=== PATIENT | female | born 1960 | race Caucasian/White ===

== ENCOUNTER → 2017-02-19 | Outpatient (CLI) | payer OTHER | LOC: BMCIMAGING 08:27 | DX: Z12.31 Encounter for screening mammogram for malignant neoplasm of breast (principal) | CPT/HCPCS: G0202 ==

== ENCOUNTER → 2018-03-11 | Outpatient (CLI) | payer BC | LOC: BMCIMAGING 13:21 | PROVIDERS: ATTEND Internal Medicine | DX: Z12.31 Encounter for screening mammogram for malignant neoplasm of breast (principal) ==

== ENCOUNTER 2018-07-22 13:13 | Inpatient (IN) | payer BC, OTHER ==
--- NOTE | 2018-07-22 13:19 | EDPHY ---
H & P Time Seen by Provider: 07/22/18 13:19 - Medical/Surgical History Hx Asthma: No Hx Chronic Respiratory Disease: No Hx Diabetes: No Hx Cardiac Disease: No Hx Renal Disease: No Hx Cirrhosis: No Hx Alcoholism: No Hx HIV/AIDS: No Hx Splenectomy or Spleen Trauma: No Other PMH: PMH;hypothyroid. PSH:myomectomy, 2x c-sections, - Social History Smoking Status: Never smoked Constitutional: Initial Vital Signs Temperature (C) 36.5 C 07/22/18 13:16 Heart Rate 83 07/22/18 13:16 Respiratory Rate 18 07/22/18 13:16 Blood Pressure 143/103 H 07/22/18 13:16 O2 Sat (%) 100 07/22/18 13:16 O2 Delivery Mode Room Air Allergies/Adverse Reactions: Sulfa (Sulfonamide Antibiotics) Allergy (Verified 07/22/18 13:20) Home Medications: Medication Instructions Recorded Albuterol [Proventil] 1 inh IH QID PRN 10/20/15 Aspirin [Aspirin 81mg (*)] 81 mg PO HS 10/20/15 SIMVASTATIN 10 mg PO HS 10/20/15 Levothyroxine [Synthroid 88 mcg 88 mcg PO DAILY06 #30 tab 10/21/15 (*)] Medical Decision Making - Diagnostics Imaging Results: Imaging Impressions Head CT 07/22/18 13:34 Impression: 1. Large subarachnoid hemorrhage. 2. Mildly dilated lateral ventricles without obstructing mass. Trace intraventricular hemorrhage. Findings discussed with Emergency Department physician, Ash Martin MD, on , 14:20. Head CTA 07/22/18 13:34 Impression: 1. Normal intracranial arterial circulation. No evidence of aneurysm. 2. Patent venous system. Findings were conveyed to Diana, the scribe working with Emergency Department physician, Ash Martin MD, on 07/22/2018, 14:28. Cosigned: Dr. Coy Silva. Neck CTA 07/22/18 13:34 Impression: No dissection or occlusion. Minimal right and mild left carotid stenosis due to plaque. No ulcerative plaque or dissection. Measurement of carotid stenosis is based on the residual internal carotid diameter with [place] Symptomatic Carotid Endarterectomy Trial (NASCET) based stenosis levels. Findings were conveyed to Diana, the scribe working with Emergency Department physician, Ash Martin MD, on 07/22/2018, 14:28. Imaging: Discussed imaging studies w/ hoop cutter Radiologist ED Course/Re-evaluation: CHIEF COMPLAINT: Headache HISTORY OF PRESENT ILLNESS: This patient is a 58 year old female complaining of a sudden severe headache and neck pain which began about one hour prior to arrival. She was driving and had a sudden sensation of stiffness and numbness in her neck. She developed pain almost immediately following which progressed up to her occiput and then to her forehead. She has never had similar headaches in the past. She denies any family history of headaches. She does endorse recent considerable stress due to a family member's hospitalization. Just as I walked into the room to interview the patient, she endorses another sudden, even more intense pain in her head and neck. She denies any recent head trauma. No recent illness. No nausea, vomiting, diarrhea, numbness or weakness in her extremities, chest pain , shortness of breath, fever, or other associated symptoms. REVIEW OF SYSTEMS: A comprehensive 10 system review of systems is otherwise negative aside from elements mentioned in the history of present illness and medical decision making. PHYSICAL EXAM: HR, BP, O2 Sat, RR. Temp noted General Appearance: Alert, well hydrated, appropriate, and non-toxic appearing. Head: Atraumatic without scalp tenderness or obvious injury Eyes: Pupils equal, round, reactive to light and accommodation, EOMI, no trauma , no injection. Ears: Clear bilaterally, no perforation, normal landmarks Nose: Atraumatic, no rhinorrhea, clear. Throat: There is no erythema or exudates, no lesions, normal tonsils, mucus membranes moist. Neck: Supple, 2+ carotid upstroke, nontender, no lymphadenopathy. Respiratory: No retractions, no distress, no wheezes, and no accessory muscle use. Lungs are clear to auscultation bilaterally. Cardiovascular: Regular rate and rhythm, no murmurs, rubs, or gallops. Bilateral carotid, radial, dorsalis pedis, and posterior tibial pulses intact. Good capillary refill all extremities. Gastrointestinal: Abdomen is soft, nontender, non-distended, no masses, no rebound, no guarding, no peritoneal signs. Musculoskeletal: Normal active ROM of all extremities, atraumatic. Neurological: Alert, appropriate, and interactive. The patient has normal DTRs and non-focal cranial nerves, motor, sensory, and cerebellar exam. Skin: No rashes, good turgor, no nodules on palpation. Past medical history: Hypothyroid. Past surgical history: Myomectomy, c-sections x 2 Family history: Noncontributory. Social history: . at bedside. Lives in [place]. Does not abuse tobacco, drugs, or alcohol. DIAGNOSTICS/PROCEDURES/CRITICAL CARE TIME: I spent a total of 40 minutes of critical care time including but not limited to obtaining history, performing a physical exam, ordering interventions and the bedside monitoring of those interventions, collecting and interpreting tests and discussion with consultants but not including time spent performing procedures. DIFFERENTIAL DIAGNOSIS: The differential diagnosis for the patient's headache included but was not limited to subarachnoid hemorrhage, migraine headache, tension headache and infectious causes such as meningitis, pharyngitis and sinusitis. MEDICAL DECISION MAKIN58 y/o female presents following a sudden onset severe neck and headache which began about one hour ago while she was driving. She is neurologically intact on exam. Plan for CT head, CTA head and neck. Plan to administer migraine cocktail for symptom relief. Plan for labs including i-stat. 13:40 Notified by tech of low potassium, 2.6. Plan to administer 20 mEq K+. 14:[address] Stinson, radiologist. CT shows large subarachnoid hemorrhage. 14:[address] Saez, neurosurgeon. Neurosurgery to consult. 14:[address] Stinson, radiologist. No aneurysm noted on CTA. No dissection or occlusion. 14:31 Discussed imaging results with patient. Her is now at bedside. The patient remains neurologically intact, she is mentating appropriately and moving all extremities. 14:40 BP 138/98. We will monitor this. 14:[address] Saez, neurosurgeon. He accepts admission to ICU for subarachnoid hemorrhage. Neurosurgery to consult as above. - Data Points Laboratory Results: 07/22/18 13:38 POC Hgb 15.0 gm/dL gm/dL (12.6-16.3) POC Hct 44 % % (38-47) POC Sodium 141 mEq/L mEq/L (135-145) POC Potassium 2.6 mEq/L L* mEq/L (3.3-5.0) POC Chloride 107 mEq/L mEq/L (97-110) POC BUN 12 mg/dL mg/dL (7-23) POC Creatinine 0.8 mg/dL mg/dL (0.6-1.0) POC Glucose 123 mg/dL H mg/dL (70-100) Medications Given: Potassium Chloride (Potassium Cl 10 Meq (Premix)) 100 mls @ 100 mls/hr IV Q1H DORON Stop: 07/22/18 16:29 Last Admin: 07/22/18 14:27 Dose: 100 mls Discontinued Medications Dexamethasone (Decadron Injection) 10 mg IVP EDNOW ONE Stop: 07/22/18 13:37 Last Admin: 07/22/18 13:43 Dose: 10 mg Ketorolac Tromethamine (Toradol) 30 mg IVP EDNOW ONE Stop: 07/22/18 13:38 Last Admin: 07/22/18 13:43 Dose: 30 mg Metoclopramide HCl (Reglan Injection) 10 mg IVP EDNOW ONE Stop: 07/22/18 13:37 Last Admin: 07/22/18 13:43 Dose: 10 mg Point of Care Test Results: Chemistry 07/22/18 13:38 POC Sodium 141 mEq/L mEq/L (135-145) POC Potassium 2.6 mEq/L L* mEq/L (3.3-5.0) POC Chloride 107 mEq/L mEq/L (97-110) POC BUN 12 mg/dL mg/dL (7-23) POC Creatinine 0.8 mg/dL mg/dL (0.6-1.0) POC Glucose 123 mg/dL H mg/dL (70-100) ISTAT H&H 07/22/18 13:38 POC Hgb 15.0 gm/dL gm/dL (12.6-16.3) POC Hct 44 % % (38-47) Departure - Departure Disposition: [facility] Inpatient Acute Clinical Impression: Subarachnoid hemorrhage Condition: Fair Referrals: Patient,NotPresent [Unknown] - As per Instructions Report Scribed for: Ash Martin Report Scribed by: Stephanie Garcia Date of Report: 07/22/18 Time of Report: 14:36
[2018-07-22] MEDS ORDERED: METOCLOPRAMIDE 10 MG/2 ML VIAL IVP ONE (13:36)
[2018-07-22] MEDS ORDERED: DEXAMETHASONE 10 MG/ML VIAL IVP ONE (13:36)
[2018-07-22] MEDS ORDERED: KETOROLAC 30 MG/1 ML SDV IVP ONE (13:37)
[2018-07-22] MEDS ORDERED: POTASSIUM Cl (KCl) 100 ML IV ONE (13:51)
[2018-07-22] MEDS ORDERED: IOPAMIDOL (ISOVUE 370) 100 ML BTL IV ONE (13:56)
[2018-07-22] MEDS: POTASSIUM Cl (KCl) 100 ML IV SCH ×2 (14:27→15:31)
[2018-07-22] MEDS ORDERED: ONDANSETRON 4 MG/2 ML VIAL ONE (15:58)
[2018-07-22] MEDS ORDERED: niCARdipine/NACL 200 ML IV SCH (16:30)
--- NOTE | 2018-07-22 16:39 | GHP ---
DATE OF ADMISSION: 07/22/2018 Neurosurgical History and Physical CHIEF COMPLAINT: Worst headache of life. 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 During the drive, she developed a sudden severe headache and neck pain that continued in int ensity. She was only 2 minutes from her house and continued home. She went to her neighbor's house and had them call 911. She was transported by ambulance to the emergency department. There, a head CT was obtained which showed a large subarachnoid hemorrhage. She currently complains of a headache and neck pain. This is associated with some nausea. She denies any weakness, paresthesias, or ataxi a. PAST MEDICAL HISTORY: 1. Hyperlipidemia. 2. Hypothyroidism. MEDICATIONS: Prior to admission: 1. Simvastatin. 2. Progesterone. 3. Synthroid. 4. Aspirin. ALLERGIES: Sulfa. FAMILY HISTORY: Her father of a cerebral aneurysm. SOCIAL HISTORY: Patient is and has children. She does not smoke or use drugs. She does dri nk alcohol socially. REVIEW OF SYSTEMS: Patient has no fevers, chills, recent unexplained weight loss, or fatigue. GENERAL PHYSICAL EXAM: Patient is lying in the emergency department in a mild amount of distress. H ead, eyes, ears, nose, and throat are negative to drainage. The extremities are pink, warm, and dry. NEUROLOGICAL EXAM: Patient is awake, alert, oriented x4. Pupils are equal, round, reactive to light . Extraocular motions are intact. There is no evidence of facial droop. Tongue and uvula are midli ne. Spinal accessory muscles are intact. Her motor strength is 5/5 in her arms and legs. Sensation is grossly intact to light touch in her arms and legs. Deep tendon reflexes are 1/4. There is a ne gative Dayna's with no clonus. DIAGNOSTIC STUDIES: A head CT without contrast from 07/22/2018 shows a large amount of subarachnoid blood along the interhemispheric falx, suprasellar space, ambient cisterns, and bilateral anterior Sy lvian fissures. This is suspicious for an aneurysmal subarachnoid hemorrhage. There is no evidence of a subdural hematoma or hydrocephalus. A CTA of the head from 07/22/2018, per the Radiology report, shows a normal intracranial arterial cir culation with no evidence of an aneurysm. There is no evidence of a venous abnormality. A CTA of the neck shows mild bilateral carotid stenosis due to a plaque. There is no evidence of a d issection or occlusion. IMPRESSION: This is a 58-year-old female who has a large spontaneous subarachnoid hemorrhage which i s suspicious for being aneurysmal in nature. She is neurologically intact. PLAN: All the above discussed in detail with patient and her . This patient was seen by Dr. Johnston. At this point in time, her initial CTA is negative for an aneurysm. She will be admitted to the ICU with aggressive blood pressure control. We would like her systolic blood pressure to be kept below 130. She will be started on amlodipine as well as Keppra. She will likely require convention al 4-vessel angiogram sometime in the next day or two to better evaluate for a possible underlying an eurysm. Please call with any neurological changes. /[id number]/MODL
[2018-07-22] MEDS: niMODipine 30 MG CAP PO SCH ×2 (17:02→22:08)
[2018-07-22] MEDS: NS 1,000 ML IV SCH (17:02)
[2018-07-22] MEDS: ACETAMINOPHEN 325 MG TAB PO PRN (17:02)
--- NOTE | 2018-07-22 17:47 | PDMN ---
Medical Necessity Medical necessity: MCG: M79 SAH, non surgical - 4 days: CT shows Large SAH neg for aneurysm, - further monitoring and eval > 2 MN anticipated.
[2018-07-22] MEDS: ASPIRIN EC 81 MG TAB PO SCH (21:02)
[2018-07-22] MEDS: levETIRAcetam 500 MG TAB PO SCH (21:02)
[2018-07-22] MEDS: PROGESTERONE,MICR 100 MG CAP PO SCH (21:02)
[2018-07-22] MEDS: DOXYCYCLINE MONOHYDRATE 40 MG PO SCH (21:02)
[2018-07-22] MEDS: ATORVASTATIN CALCIUM 10 MG TAB PO SCH (21:02)
[2018-07-23] MEDS: niMODipine 30 MG CAP PO SCH ×6 (01:46→21:54)
[2018-07-23] MEDS: ASPIRIN EC 81 MG TAB PO SCH (01:49)
[2018-07-23] MEDS: NS 1,000 ML IV SCH (03:09)
[2018-07-23 05:13] LABS: PLATELET COUNT 163 10^3/uL (150-400)
[2018-07-23] MEDS: LEVOTHYROXINE 100 MCG TAB PO SCH (05:44)
[2018-07-23] MEDS: ACETAMINOPHEN 325 MG TAB PO PRN (08:58)
[2018-07-23] MEDS: levETIRAcetam 500 MG TAB PO SCH ×2 (09:00→21:54)
--- NOTE | 2018-07-23 09:13 | NEUSURGPN ---
Assessment/Plan: A/P:58 yo female with sudden onset of headache, found to have spontaneous SAH. CTA negative for aneurysm - CTA negative, plan on 4 vessel angiogram today with Dr. 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 Johnston Subjective: Patient states she is feeling miserable this morning with headache. No acute changes overnight. No nausea currently, vomiting. Objective: NAD, VSS PERRL, EOMI Speech fluent, following commands Face symmetrical CN II-XII grossly intact BRYANT X4 BUE/BLE 02/28 - Physician Discussed Patient with Dr.: Johnston Neurosurgery Physical Exam - Vitals, I&O, Labs I and O 07/22/18 07/23/18 07/24/18 05:59 05:59 05:59 Intake Total 2816 Balance 2816 Weight 56.699 kg Intake: Oral (ml) 500 IV Intake (ml) 316 IV Infused (ml) 2000 Ns 1,000 ml @ 75 mls/hr 800 IV CONT DORON Rx#: [id number] Other: Number of Voids Toilet 1 Vital Signs Temp Pulse Resp BP Pulse Ox 37.1 C 54 L 16 88/60 L 96 07/23/18 06:00 07/23/18 08:00 07/23/18 08:00 07/23/18 08:00 07/23/18 08:00 Laboratory Results 07/23/18 05:00 07/23/18 05:00 ICD10 Worksheet Patient Problems: Problems Problem Status Onset Subarachnoid hemorrhage Acute Dyspnea Acute
[2018-07-23] MEDS ORDERED: ALTEPLASE 2 MG VIAL IVP PRN (11:12)
[2018-07-23] MEDS ORDERED: HEPARIN 10,000 UNIT/10 ML MDV (1,000 UNIT/ML) IVP PRN (11:12)
[2018-07-23] MEDS ORDERED: MIDAZOLAM 2 MG/2 ML VIAL IVP PRN (11:12)
[2018-07-23] MEDS ORDERED: fentaNYL 100 MCG/2 ML INJ IVP PRN (11:12)
[2018-07-23] MEDS ORDERED: NALOXONE HCL 0.4 MG/ML INJ IVP PRN (11:12)
[2018-07-23] MEDS ORDERED: GLUCAGON HCL 1 MG VIAL IVP PRN (11:12)
[2018-07-23] MEDS ORDERED: PROTAMINE SULFATE 50 MG/5 ML VIAL IVP PRN (11:12)
[2018-07-23] MEDS ORDERED: MEPERIDINE 25 MG/ML SYR IVP PRN (11:12)
[2018-07-23] MEDS ORDERED: FLUMAZENIL 0.5 MG/5 ML MDV IVP PRN (11:12)
[2018-07-23] MEDS ORDERED: NS 1,000 ML IV SCH (11:15)
[2018-07-23] MEDS ORDERED: IOPAMIDOL (ISOVUE-370) 150 ML BTL IV ONE ×2 (11:23→11:51)
--- NOTE | 2018-07-23 11:27 | GCON ---
REASON FOR ADMISSION: Subarachnoid hemorrhage. HISTORY OF PRESENT ILLNESS: Ms Valera is a very pleasant 58-year-old white female with a past [facility] history of hypothyroidism and hyperlipidemia. She apparently was driving home when she developed severe headache and neck pain. She was brought via EMS to the emergency room where a CT scan was pe rformed. This showed a large subarachnoid hemorrhage. She was subsequently admitted to the intensiv e care unit. In discussion with the patient, she states with the exception of her headache and confu tomasa, she is doing well. She denies any chest pain, pleuritic-type chest pain or angina equivalent. There are no fever or night sweats. She has difficulty with short and long-term memory at this poin t. REVIEW OF SYSTEMS: A 10-point review of systems is performed, negative except for what is listed in history of present illness. PAST MEDICAL HISTORY: Significant for hypothyroidism, hyperlipidemia. ALLERGIES: To sulfa. FAMILY HISTORY: Significant for cerebral aneurysm. SOCIAL HISTORY: Distant history of tobacco use. Infrequent alcohol use. She is . She works in [employer] for a [employer]. She has lived in [place] for 15 years and is originally from [facility]. MEDICATIONS: Include aspirin, progesterone, Synthroid, and simvastatin. PHYSICAL EXAM: VITAL SIGNS: Blood pressure is 89/57, pulse 52, respirations 17, temperature 36.6, o xygen saturations 96% on room air. GENERAL: She is a well-developed, well-nourished 58-year-old i te female who is resting comfortably in some distress. HEENT: Eyes are PERRLA, EOMI. Throat shows no erythema or tonsillar hypertrophy. NECK: Supple. No cervical adenopathy. HEART: Regular rate and rhythm without murmurs, rubs, gallops. LUNGS: Clear to auscultation. No w heeze or rhonchi. ABDOMEN: Soft, nontender. Bowel sounds are present in all 4 quadrants. EXTREMIT IES: No clubbing, cyanosis, or edema. LABORATORY DATA: White count is 8.9, hemoglobin 12, hematocrit 34, platelet count is 163. Sodium 13 8, potassium 4.5, chloride 110, CO2 is 21, BUN is 11, creatinine 0.7, glucose is 103. CT scan of the head reveals a subarachnoid hemorrhage with progression of ventricular dilatation. IMPRESSION: 1. Subarachnoid hemorrhage, spontaneous. 2. Hyperlipidemia. 3. Hypothyroidism. 4. Confusion. RECOMMENDATIONS: 1. Patient is scheduled for a 4 vessel angiogram today. 2. Continue systolic blood pressure from 90-130. 3. Frequent neuro checks. 4. Deep vein thrombosis and pulmonary embolism prophylaxis holding anticoagulation for now. 5. Stress ulcer prophylaxis. 6. N.p.o. for now. /[id number]/MODL
--- NOTE | 2018-07-23 12:16 | PDPROPOC ---
Sedation Plan of Care Sedation Plan of Care: vital signs stable, mental status noted, patient educated of risks, benefits, alternatives, patient can tolerate sedation ASA Classification: ASA 3 Planned drugs: midazolam Mallampati Score: Class 1 Mallampati Reference Image: Patient passed 3-3-2 rule?: Yes
--- NOTE | 2018-07-23 13:18 | POSTOPPROG ---
Post Op Note Date of Operation: 07/23/18 Surgeon: Anderson Johnston Tutorial Laboratory Supervisor: none Anesthesia: IV Sedation Pre-op Diagnosis: SAH Post-op Diagnosis: same Indication: SAH Procedure: diagnostic angiogram Findings: normal 6 vessel angiogram Inf/Abcess present in the surg proc area at time of surgery?: No EBL: Minimal Complications: none
[2018-07-23] MEDS ORDERED: METHOCARBAMOL 1,000 MG in NS 50 ML IVP ONE (13:54)
[2018-07-23] MEDS ORDERED: niMODipine 30 MG/0.9 ML UDL PO ONE (14:45)
[2018-07-23] MEDS ORDERED: NS BOLUS 1000 ML (Wide open) IV ONE (17:00)
[2018-07-23] MEDS: ATORVASTATIN CALCIUM 10 MG TAB PO SCH (21:54)
[2018-07-23] MEDS: PROGESTERONE,MICR 100 MG CAP PO SCH (21:54)
[2018-07-23] MEDS: HYDROCODONE/APAP 5/325 TAB PO PRN (22:08)
[2018-07-23] MEDS: DOXYCYCLINE MONOHYDRATE 40 MG PO SCH (22:10)
[2018-07-23] MEDS: ONDANSETRON 4 MG/2 ML VIAL IVP PRN (22:33)
[2018-07-24] MEDS: niMODipine 30 MG CAP PO SCH ×6 (02:32→23:05)
[2018-07-24] MEDS: HYDROCODONE/APAP 5/325 TAB PO PRN (02:35)
[2018-07-24] MEDS: LEVOTHYROXINE 88 MCG TAB PO SCH (06:31)
--- NOTE | 2018-07-24 07:44 | NEUSURGPN ---
Assessment/Plan: 58F with onset of severe headache and spontaneous SAH -Angiogram yesterday negative -Will check MRI of brain and c spine with an without contrast today -Continue Nimodipine -SBP <130 -Continue Q2 hour neuro checks -Discussed with Dr. bernabe -Please notify NS with any change in neuro/motor exam Subjective: Headache and full feeling in the head Objective: NAD A&Ox3 PERRL,EOMI BRYANT X4 to command - Physician Discussed Patient with : Vickie Neurosurgery Physical Exam - Vitals, I&O, Labs I and O 07/23/18 07/24/18 07/25/18 05:59 05:59 05:59 Intake Total 2816 2865 Balance 2816 2865 Weight 56.699 kg Intake: Oral (ml) 500 950 IV Intake (ml) 316 1915 IV Infused (ml) 2000 Ns 1,000 ml @ 75 mls/hr 800 IV CONT DORON Rx#: [id number] Other: Number of Voids Toilet 1 1 Vital Signs Temp Pulse Resp BP Pulse Ox 37.4 C 45 L 11 L 109/54 L 96 07/24/18 04:00 07/24/18 06:00 07/24/18 06:00 07/24/18 06:00 07/24/18 06:00 Laboratory Results 07/23/18 05:00 07/23/18 05:00 ICD10 Worksheet Patient Problems: Problems Problem Status Onset Subarachnoid hemorrhage Acute Dyspnea Acute
[2018-07-24] MEDS ORDERED: GADOBUTROL 10 ML VIAL IVP ONE (09:24)
[2018-07-24] MEDS: levETIRAcetam 500 MG TAB PO SCH ×2 (11:00→20:00)
--- NOTE | 2018-07-24 12:16 | PDINTPN ---
Card Services Specialist Progress Note Assessment/Plan: Assessment Plan: * Subarachnoid hemorrhage-spontaneous -MRI of the brain and C-spine pending -continue aggressive blood pressure control * Altered mental status-slow to improve * History of hypothyroidism * Hyperlipidemia * PT/OT Subjective: Resting comfortably. Complains of headache. Objective: Vital Signs Temp Pulse Resp BP Pulse Ox 37.4 C 45 L 11 L 109/54 L 96 07/24/18 04:00 07/24/18 06:00 07/24/18 06:00 07/24/18 06:00 07/24/18 06:00 Laboratory Results 07/23/18 05:00 07/23/18 05:00 07/23/18 07/24/18 07/25/18 05:59 05:59 05:59 Intake Total 4771 7577 Balance 8894 4376 - Time Spent With Patient Time Spent With Patient: 25 min of time spent with patient, over 1/2 involved with coordination of care or counseling. Case discussed with nursing Physical Exam - Physical Exam General Appearance: alert, mild distress EENT: PERRL/EOMI Neck: non-tender Respiratory: chest non-tender, lungs clear, normal breath sounds Cardiac/Chest: normal peripheral pulses, regular rate, rhythm Peripheral Pulses: 2+: carotid (R), carotid (L), femoral (R), femoral (L), dorsalis-pedis (R), dorsalis-pedis (L) Abdomen: normal bowel sounds, non-tender, soft Pelvic Exam: deferred Rectal: deferred Skin: normal color, warm/dry Extremities: normal range of motion, non-tender, normal inspection, normal capillary refill Neuro/Psych: alert ICD10 Worksheet Patient Problems: Problems Problem Status Onset Subarachnoid hemorrhage Acute Dyspnea Acute
[2018-07-24] MEDS: ACETAMINOPHEN 325 MG TAB PO PRN (14:46)
[2018-07-24] MEDS: KETOROLAC 15 MG/1 ML SDV IVP SCH ×2 (18:10→23:05)
[2018-07-24] MEDS: DOXYCYCLINE MONOHYDRATE 40 MG PO SCH (20:00)
[2018-07-24] MEDS: ATORVASTATIN CALCIUM 10 MG TAB PO SCH (20:00)
[2018-07-24] MEDS: PROGESTERONE,MICR 100 MG CAP PO SCH (20:00)
[2018-07-25] MEDS: niMODipine 30 MG CAP PO SCH ×6 (02:32→21:46)
[2018-07-25] MEDS: KETOROLAC 15 MG/1 ML SDV IVP SCH ×3 (06:28→18:21)
[2018-07-25] MEDS: LEVOTHYROXINE 88 MCG TAB PO SCH (06:29)
--- NOTE | 2018-07-25 08:05 | NEUSURGPN ---
Assessment/Plan: 58F with onset of severe headache and spontaneous SAH -Angiogram was - MRI of brain and c spine with and without contrast done yesterday - shows multiple small lacunar infarcts likely from angiogram per Dr Johnston. No other acute fidings. -Continue Nimodipine -SBP <130 -Continue Q2 hour neuro checks -Has continued headache, will start 3 day decadron taper to see if this helps. Also can try Pegram. -Pt needs encouragement to eat, has low PO intake -With angio and MRIs negative, will likely repeat CTA in 1 week. Continue to monitor for any neuro changes -Discussed with Dr. Johnston -Please notify NS with any change in neuro/motor exam Subjective: Pt resting in bed, has continued pain over forehead and behind eyes. D/w RN and pt was able to sleep some last night after Toradol was given Objective: AAOx3 CN II-XII grossly intact PERRL, EOMi MAEx4 Motor 5/5 BUE/BLE +LT Urinary Catheter in Place: No - Physician Discussed Patient with Dr.: Johnston Neurosurgery Physical Exam - Vitals, I&O, Labs I and O 07/24/18 07/25/18 07/26/18 05:59 05:59 05:59 Intake Total 2865 1960 Balance 2865 1959 Intake: Oral (ml) 950 1960 IV Intake (ml) 1915 Other: Number of Voids Toilet 1 1 Vital Signs Temp Pulse Resp BP Pulse Ox 36.9 C 42 L 14 102/53 L 97 07/25/18 04:00 07/25/18 06:00 07/25/18 06:00 07/25/18 06:00 07/25/18 06:00 Laboratory Results 07/23/18 05:00 07/23/18 05:00 ICD10 Worksheet Patient Problems: Problems Problem Status Onset Subarachnoid hemorrhage Acute Dyspnea Acute
[2018-07-25] MEDS: HYDROCODONE/APAP 5/325 TAB PO PRN ×2 (08:24→13:18)
[2018-07-25] MEDS: levETIRAcetam 500 MG TAB PO SCH ×2 (08:25→20:27)
[2018-07-25] MEDS: DEXAMETHASONE 1.5 MG TAB PO SCH ×3 (08:32→21:46)
--- NOTE | 2018-07-25 09:39 | PDINTPN ---
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 Alert and orient x3. * History of hypothyroidism * Hyperlipidemia * PT/OT Subjective: Complains of a headache, primarily behind her eyes. There is no cough or production of sputum. She denies any chest pain Objective: Vital Signs Temp Pulse Resp BP Pulse Ox 36.9 C 42 L 14 102/53 L 97 07/25/18 04:00 07/25/18 06:00 07/25/18 06:00 07/25/18 06:00 07/25/18 06:00 Laboratory Results 07/23/18 05:00 07/23/18 05:00 07/24/18 07/25/18 07/26/18 05:59 05:59 05:59 Intake Total 2865 1960 Balance 2865 1959 - Time Spent With Patient Time Spent With Patient: 35 min of time spent with patient, over 1/2 involved coordination of care or counseling. Case discussed with nursing Physical Exam - Physical Exam General Appearance: WD/WN, alert EENT: PERRL/EOMI Neck: non-tender, full range of motion, supple, normal inspection Respiratory: chest non-tender, lungs clear, normal breath sounds Cardiac/Chest: normal peripheral pulses, regular rate, rhythm Peripheral Pulses: 2+: carotid (R), carotid (L), femoral (R), femoral (L), dorsalis-pedis (R), dorsalis-pedis (L) Abdomen: normal bowel sounds, non-tender, soft Pelvic Exam: deferred Rectal: deferred Skin: normal color, warm/dry Extremities: normal range of motion, non-tender, normal inspection, normal capillary refill Neuro/Psych: alert, oriented x 3 ICD10 Worksheet Patient Problems: Problems Problem Status Onset Subarachnoid hemorrhage Acute Dyspnea Acute
--- NOTE | 2018-07-25 11:16 | ASMTCMCOM ---
CM Note CM Note Notes: Patient improving after experiencing spontaneous SAH 07/22. She is still c/o headache, but is AO x 3. She is supported by her and children. She is ambulating and able to take care of ADLs. She will discharge independently. Case Management available if needs change. Date Signed: 07/25/2018 11:15 AM Electronically Signed By:Elisabeth Graves RN
[2018-07-25] MEDS: DOXYCYCLINE MONOHYDRATE 40 MG PO SCH (20:27)
[2018-07-25] MEDS: ATORVASTATIN CALCIUM 10 MG TAB PO SCH (20:27)
[2018-07-25] MEDS: PROGESTERONE,MICR 100 MG CAP PO SCH (20:27)
[2018-07-25] MEDS: ONDANSETRON 4 MG/2 ML VIAL IVP PRN (21:43)
[2018-07-25] MEDS: ACET/CAFFEINE/BUTA FIORICET 1 EACH TAB PO PRN (21:46)
[2018-07-26] MEDS: KETOROLAC 15 MG/1 ML SDV IVP SCH ×5 (01:13→23:59)
[2018-07-26] MEDS: niMODipine 30 MG CAP PO SCH ×6 (01:14→21:34)
[2018-07-26] MEDS: ACET/CAFFEINE/BUTA FIORICET 1 EACH TAB PO PRN ×4 (03:23→20:44)
[2018-07-26] MEDS: LEVOTHYROXINE 100 MCG TAB PO SCH (06:24)
--- NOTE | 2018-07-26 07:55 | NEUSURGPN ---
Assessment/Plan: 58F with onset of severe headache and spontaneous SAH -CT brain done this am, report pending, do not see any new hemorrhages or concerning findings -Angiogram was negative for vascular abnormality - MRI of brain and c spine with and without contrast - shows multiple small lacunar infarcts likely from angiogram per Dr Johnston. No other acute findings. -Continue Nimodipine -SBP <130 -Continue Q4hour neuro checks - waiting to hear back from Dr Johnston to see if we can make her SDU status -Has continued headache, on 3 day decadron taper. Fioricet seems to help -Pt needs encouragement to eat, has low PO intake -With angio and MRIs negative, will likely repeat CTA in 1 week. Continue to monitor for any neuro changes -Discussed with Dr. Johnston -Please notify NS with any change in neuro/motor exam Subjective: Pt resting in bed, wants to explain the situation when her symptoms first began prior to arriving to ED. Was later for a conference call and driving home from hair appt. Issues with traffic and not being able to make a U-turn, was feeling very stressed. Also recent increase in stress after her mother was admitted to the hospital 3 weeks ago. States she was rushing home and felt a very unusual sensation in the back of her neck, like a tingling. It then began to spread up her head and as she approached home started to have a headache. Got home and got on the conference call and told her boss she needed to hang up. Went over to her neighbor who called 911. Had pain and numbness in her arms. Objective: AAOx3 NAD VSS CN II-XII grossly intact MAEx4 Motor 5/5 BUE/BLE Urinary Catheter in Place: No - Physician Discussed Patient with Dr.: Johnston Neurosurgery Physical Exam - Vitals, I&O, Labs I and O 07/25/18 07/26/18 07/27/18 05:59 05:59 05:59 Intake Total 1959 1460 Balance 1959 1460 Intake: Oral (ml) 1959 1460 Other: Number of Voids Toilet 1 1 Vital Signs Temp Pulse Resp BP Pulse Ox 37.2 C 45 L 18 95/65 L 95 07/26/18 00:00 07/26/18 06:00 07/26/18 06:00 07/26/18 04:00 07/26/18 06:00 Laboratory Results 07/23/18 05:00 07/23/18 05:00 ICD10 Worksheet Patient Problems: Problems Problem Status Onset Subarachnoid hemorrhage Acute Dyspnea Acute
[2018-07-26] MEDS: levETIRAcetam 500 MG TAB PO SCH ×2 (09:45→20:45)
[2018-07-26] MEDS: DEXAMETHASONE 1.5 MG TAB PO SCH ×2 (09:46→20:45)
--- NOTE | 2018-07-26 10:49 | PDINTPN ---
Intelligence Officer Progress Note Assessment/Plan: Assessment Plan: * Subarachnoid hemorrhage-spontaneous -repeat CT scan shows reduction in size of subarachnoid hemorrhage * Headache-improved with Fioricet * Altered mental status-improved. Alert and orient x3. * History of hypothyroidism * Hyperlipidemia * PT/OT Subjective: Resting comfortably. Headache improved. Still poor appetite Objective: Vital Signs Temp Pulse Resp BP Pulse Ox 37.0 C 54 L 18 97/63 L 97 07/26/18 08:00 07/26/18 10:00 07/26/18 10:00 07/26/18 10:00 07/26/18 10:00 Laboratory Results 07/23/18 05:00 07/23/18 05:00 07/25/18 07/26/18 07/27/18 05:59 05:59 05:59 Intake Total 1960 1460 Balance 1960 1460 - Time Spent With Patient Time Spent With Patient: 25 min of time spent with patient, over 1/2 involved with coordination of care counseling Case discussed with nursing Physical Exam - Physical Exam General Appearance: WD/WN, alert EENT: PERRL/EOMI Neck: non-tender, full range of motion, supple, normal inspection Respiratory: chest non-tender, lungs clear, normal breath sounds Cardiac/Chest: normal peripheral pulses, regular rate, rhythm Peripheral Pulses: 2+: carotid (R), carotid (L), femoral (R), femoral (L), dorsalis-pedis (R), dorsalis-pedis (L) Abdomen: normal bowel sounds, non-tender, soft Pelvic Exam: deferred Rectal: deferred Skin: normal color, warm/dry Extremities: normal range of motion, non-tender, normal inspection, normal capillary refill Neuro/Psych: no motor/sensory deficits, alert, normal mood/affect, oriented x 3 ICD10 Worksheet Patient Problems: Problems Problem Status Onset Subarachnoid hemorrhage Acute Dyspnea Acute
[2018-07-26] MEDS: ONDANSETRON 4 MG/2 ML VIAL IVP PRN (14:46)
[2018-07-26] MEDS: ATORVASTATIN CALCIUM 10 MG TAB PO SCH (20:45)
[2018-07-26] MEDS: PROGESTERONE,MICR 100 MG CAP PO SCH (20:45)
[2018-07-26] MEDS: DOXYCYCLINE MONOHYDRATE 40 MG PO SCH (20:45)
[2018-07-26] MEDS ORDERED: CALCIUM CARBONATE 500 MG CHEWABLE TAB PO PRN (22:20)
[2018-07-27] MEDS: ACET/CAFFEINE/BUTA FIORICET 1 EACH TAB PO PRN ×4 (02:30→20:26)
[2018-07-27] MEDS: niMODipine 30 MG CAP PO SCH ×6 (02:30→22:22)
[2018-07-27] MEDS: KETOROLAC 15 MG/1 ML SDV IVP SCH ×3 (06:25→18:23)
[2018-07-27] MEDS: LEVOTHYROXINE 88 MCG TAB PO SCH (06:27)
--- NOTE | 2018-07-27 07:58 | NEUSURGPN ---
Assessment/Plan: 58F with onset of severe headache and spontaneous SAH -CT brain 07/26 shows interval decrease in SAH within the prepontine space and basilar cisterns. Decreasing enlargement of the ventricular system. -Angiogram was negative for vascular abnormality - MRI of brain and c spine with and without contrast - shows multiple small lacunar infarcts likely from angiogram per Dr Johnston. No other acute findings. -Continue Nimodipine -SBP <130 -Continue Q4hour neuro checks at night, Q2hour neuro checks during daytime-will check with Dr Johnston about transfer to floor possibly today -Pt needs encouragement to eat, has low PO intake -With angio and MRIs negative, will repeat CTA head on 07/29. Continue to monitor for any neuro changes -Discussed possibility of return to work next week. Patient works from home. Will have Speech see and eval for cog. -Discussed with Dr. Johntson who saw the patient as well this am -Please notify NS with any change in neuro/motor exam Subjective: resting in bed, feeling better than yesterday Objective: AOx3 VSS CN II-XII grossly intact MAEx4 Motor 5/5 BUE/BLE Neuro Check Frequency: per routine Urinary Catheter in Place: No - Physician Discussed Patient with Dr.: Johnston Patient Seen by : Vickie Neurosurgery Physical Exam - Vitals, I&O, Labs I and O 07/26/18 07/27/18 07/28/18 05:59 05:59 05:59 Intake Total 1460 1770 Balance 1460 1770 Intake: Oral (ml) 1460 1770 Other: Number of Voids Toilet 1 1 Number of Stools Toilet 0 Vital Signs Temp Pulse Resp BP Pulse Ox 36.8 C 44 L 15 120/60 97 07/27/18 07:47 07/27/18 07:47 07/27/18 07:47 07/27/18 07:47 07/27/18 07:47 Laboratory Results 07/23/18 05:00 07/23/18 05:00 ICD10 Worksheet Patient Problems: Problems Problem Status Onset Subarachnoid hemorrhage Acute Dyspnea Acute
[2018-07-27] MEDS: levETIRAcetam 500 MG TAB PO SCH ×2 (08:36→20:26)
[2018-07-27] MEDS ORDERED: DEXAMETHASONE 1.5 MG TAB PO SCH (09:00)
[2018-07-27] MEDS: POLYETHYLENE GLYCOL 3350 17 GM PKT PO PRN (10:25)
--- NOTE | 2018-07-27 13:13 | PDINTPN ---
Warehouse Laborer Progress Note Assessment/Plan: Assessment: Medically stable, doing well. * Subarachnoid hemorrhage-spontaneous -MRI of the brain and C-spine pending -continue aggressive blood pressure control * Headache * Altered mental status-resolved. Alert and orient x3. * History of hypothyroidism * Hyperlipidemia * PT/OT Plan - Continue pain control, Keppra, nimodipine, and neuro checks in the ICU on Step Down per neuro surgery Recheck laboratory as none since the . Subjective: Feels better Objective: Vital Signs Temp Pulse Resp BP Pulse Ox 37.0 C 48 L 18 135/81 H 99 07/27/18 11:37 07/27/18 11:37 07/27/18 11:37 07/27/18 11:37 07/27/18 11:37 Laboratory Results 07/23/18 05:00 07/23/18 05:00 07/26/18 07/27/18 07/28/18 05:59 05:59 05:59 Intake Total 1460 1770 Balance 1460 1770 Physical Exam - Physical Exam General Appearance: alert, no apparent distress EENT: other (On room air) Neck: normal inspection Respiratory: lungs clear Cardiac/Chest: bradycardia ICD10 Worksheet Patient Problems: Problems Problem Status Onset Dyspnea Acute Subarachnoid hemorrhage Acute
[2018-07-27] MEDS: ATORVASTATIN CALCIUM 10 MG TAB PO SCH (20:26)
[2018-07-27] MEDS: PROGESTERONE,MICR 100 MG CAP PO SCH (20:26)
[2018-07-27] MEDS: DOXYCYCLINE MONOHYDRATE 40 MG PO SCH (20:27)
[2018-07-28] MEDS: niMODipine 30 MG CAP PO SCH ×6 (01:02→20:15)
[2018-07-28] MEDS: ACET/CAFFEINE/BUTA FIORICET 1 EACH TAB PO PRN ×3 (01:02→11:50)
[2018-07-28] MEDS: KETOROLAC 15 MG/1 ML SDV IVP SCH ×4 (01:03→17:43)
[2018-07-28] MEDS: LEVOTHYROXINE 100 MCG TAB PO SCH (06:35)
--- NOTE | 2018-07-28 08:06 | NEUSURGPN ---
Assessment/Plan: 58F with onset of severe headache and spontaneous SAH -CT brain 07/26 shows interval decrease in SAH within the prepontine space and basilar cisterns. Decreasing enlargement of the ventricular system. -Angiogram was negative for vascular abnormality - MRI of brain and c spine with and without contrast - shows multiple small lacunar infarcts likely from angiogram per Dr Johnston. No other acute findings. -Keep in SDU, will get repeat CTA in am -Continue Nimodipine -SBP <130 -Continue Q4hour neuro checks at night, Q2hour neuro checks during daytime -With angio and MRIs negative, will repeat CTA head on 07/29. Continue to monitor for any neuro changes -ST -Abdominal xray shows mild constipation with no evidence of obstruction or ileus -Discussed with Dr. Johnston who saw the patient as well this am -Please notify NS with any change in neuro/motor exam Subjective: Resting in bed, had increased headache yesterday afternoon which is now back to baseline Objective: AOx3 VSS CN II-XII grossly intact MAEx4 Motor 5/5 BUE/BLE Neuro Check Frequency: per routine Urinary Catheter in Place: No - Physician Discussed Patient with : Vickie Neurosurgery Physical Exam - Vitals, I&O, Labs I and O 07/27/18 07/28/18 07/29/18 05:59 05:59 05:59 Intake Total 1770 1400 Balance 1770 1400 Intake: Oral (ml) 1770 1400 Other: Intake Quantity Yes Sufficient Number of Voids Toilet 1 1 Number of Stools Toilet 0 1 Vital Signs Temp Pulse Resp BP Pulse Ox 38.0 C 57 L 17 96/76 L 94 07/28/18 07:26 07/28/18 07:26 07/28/18 07:26 07/28/18 07:26 07/28/18 07:26 Laboratory Results 07/27/18 14:30 07/27/18 14:30 ICD10 Worksheet Patient Problems: Problems Problem Status Onset Subarachnoid hemorrhage Acute Dyspnea Acute
[2018-07-28] MEDS: levETIRAcetam 500 MG TAB PO SCH ×2 (09:08→20:15)
[2018-07-28] MEDS ORDERED: IOPAMIDOL (ISOVUE 370) 100 ML BTL IV ONE (11:03)
--- NOTE | 2018-07-28 12:37 | ASMTCMCOM ---
CM Note CM Note Notes: Patient continues to have a severe headache. Went for a CTA today. RN reports that family has many stressors. This CM went to talk to pt and but they had just returned from CTA and not interested in talking at that time. Date Signed: 07/28/2018 12:07 PM Electronically Signed By:Tressa Acevedo LCSW
[2018-07-28] MEDS: GABAPENTIN 300 MG CAP PO SCH ×3 (14:32→20:15)
[2018-07-28] MEDS: PROGESTERONE,MICR 100 MG CAP PO SCH (20:15)
[2018-07-28] MEDS: ACETAMINOPHEN 325 MG TAB PO PRN (20:15)
[2018-07-28] MEDS: ATORVASTATIN CALCIUM 10 MG TAB PO SCH (20:15)
[2018-07-28] MEDS: DOXYCYCLINE MONOHYDRATE 40 MG PO SCH (21:04)
[2018-07-28] MEDS: METHOCARBAMOL 750 MG TAB PO PRN (22:15)
[2018-07-28] MEDS ORDERED: DIAZEPAM 5 MG/ML 1 ML SYR IVP ONE (22:45)
[2018-07-29] MEDS: KETOROLAC 15 MG/1 ML SDV IVP SCH ×3 (00:07→11:19)
[2018-07-29] MEDS: LEVOTHYROXINE 88 MCG TAB PO SCH (05:51)
[2018-07-29] MEDS: niMODipine 30 MG CAP PO SCH ×6 (05:51→20:24)
[2018-07-29] MEDS: levETIRAcetam 500 MG TAB PO SCH ×2 (07:28→20:24)
[2018-07-29] MEDS: GABAPENTIN 300 MG CAP PO SCH ×3 (07:28→20:24)
[2018-07-29] MEDS: METHOCARBAMOL 750 MG TAB PO PRN ×2 (07:28→20:24)
--- NOTE | 2018-07-29 08:40 | SOAPPROG ---
SOAP Progress Note Assessment/Plan: Assessment: 58 yo F admitted with spontaneous SAH Plan: neuro: stable, remains neurologically intact continued headaches for the last 3 days, holding narcotics, on neurontin, will Neurology consult CTA from 07/28 with no evidence of vascular malformation as source of hemorrhage PT/OT/ST on nimodipine on keppra continue to follow for now discussed with Dr Johnston 07/29/18 08:37 Subjective: continued severe headache, some nausea but no emesis. No weakness. Objective: Vital Signs Temp Pulse Resp BP Pulse Ox 37.7 C 57 L 13 107/70 96 07/29/18 07:30 07/29/18 07:30 07/29/18 07:30 07/29/18 07:30 07/29/18 07:30 Laboratory Results 07/27/18 14:30 07/27/18 14:30 07/28/18 07/29/18 07/30/18 05:59 05:59 05:59 Intake Total 1400 1350 Balance 1400 1350 AAOx4, + FC PERRL, no facial droop, EOMI ROMEL x 4 + light touch ICD10 Worksheet Patient Problems: Problems Problem Status Onset Subarachnoid hemorrhage Acute Dyspnea Acute
[2018-07-29] MEDS ORDERED: oxyCODONE IR 5 MG TAB PO PRN (10:27)
[2018-07-29] MEDS ORDERED: GABAPENTIN 300 MG CAP PO ONE (11:15)
[2018-07-29] MEDS: POLYETHYLENE GLYCOL 3350 17 GM PKT PO PRN (11:26)
--- NOTE | 2018-07-29 12:35 | GCON ---
NEUROLOGY CONSULT. CONSULTING: Anderson Johnston MD CHIEF COMPLAINT: Headache. HISTORY OF PRESENT ILLNESS: Ms. Valera is a very pleasant 58-year-old lady who came into the emergency department on 07/22/2018 for the worst headache of her life. She was driving home from a hair appointment, when she had a sudden onset of severe headache with neck pain. She came to the emergency department and was found to have a large subarachnoid hemorrhage on head CT without contrast. She has had followup angiography of the head and neck without aneurysm. She also had a cerebral angiogram on 07/23/[address] Johnston, which showed no evidence of aneurysm or vascular malformation. There was no obvious cause of the subarachnoid hemorrhage found. There was no vasospasm present. We were consulted to comment on headaches. She has had an expected severe headache with the subarachnoid hemorrhage. She apparently got some morphine over the weekend, and then tried p.o. narcotics, which caused nausea, and which were discontinued. She got one dose of Fioricet yesterday, I believe. Initially, I was consulted over the phone, and from that conversation, I had the impression there could be a rebound component, so we discontinued the Fioricet, which was only given one time, and started gabapentin 300 mg three times daily. This has not had an effect yet. For past medical history, social history, family history, medications and allergies, please see Mr. Martinez's H and P dated 07/22/2018. PHYSICAL EXAMINATION: VITAL SIGNS: Blood pressure 123/78, temperature 36.4, respirations 18, O2 sats 96%. GENERAL: The patient was lying in a dark IC room , and was complaining of pain as soon as I entered. She did seem uncomfortable. In terms of her consciousness, she was entirely awake, alert, and lucid, and able to communicate clearly with me. There was no language dysfunction. There are no obvious asymmetries in the way she was moving her limbs, or convulsive/myoclonic activity. IMPRESSION AND PLAN: 1. Subarachnoid hemorrhage, non-aneurysmal. 2. Headache. I discussed the case at length with the Neurosurgery team. They will increase her gabapentin to 600 p.o. three times daily for baseline pain management, and they will manage opiates for acute head pain. I defer to the Neurosurgery service on the opiate management. I have no further recommendations now. In terms of tapering the patient from gabapentin, they can keep her on 600 mg three times daily for 1-2 weeks, then decrease to 300 three times daily for 1-2 weeks, then 300 twice daily for 1-2 weeks, then 300 daily for 1-2 weeks, then discontinue. The specific velocity of the taper, meaning keeping her on a specific dose 1 or 2 weeks, can be decided upon by the patient's pain level. This can be done by Neurosurgery as an outpatient. We will sign off. Thank you for the consultation. Thirty-five total minutes floor time, reviewing extensive imaging, including angiography, head CTs, showing the images to the patient and her , direct counseling and coordination of care. /[id number]/MODL MTDD
[2018-07-29] MEDS: ATORVASTATIN CALCIUM 10 MG TAB PO SCH (20:24)
[2018-07-29] MEDS: PROGESTERONE,MICR 100 MG CAP PO SCH (20:24)
[2018-07-29] MEDS: DOXYCYCLINE MONOHYDRATE 40 MG PO SCH (20:24)
[2018-07-30] MEDS: HYDROCODONE/APAP 5/325 TAB PO PRN ×5 (00:09→21:17)
[2018-07-30] MEDS: niMODipine 30 MG CAP PO SCH ×6 (01:12→21:18)
[2018-07-30] MEDS: DIAZEPAM 5 MG TAB PO PRN ×3 (01:12→21:17)
[2018-07-30] MEDS: METHOCARBAMOL 750 MG TAB PO PRN ×2 (05:10→15:47)
[2018-07-30] MEDS: LEVOTHYROXINE 100 MCG TAB PO SCH (05:10)
[2018-07-30] MEDS: levETIRAcetam 500 MG TAB PO SCH ×2 (07:29→21:17)
[2018-07-30] MEDS: GABAPENTIN 300 MG CAP PO SCH ×3 (07:29→21:17)
--- NOTE | 2018-07-30 08:01 | NEUSURGPN ---
Assessment/Plan: Assessment: 58 yo F admitted with spontaneous SAH Plan: neuro: stable, remains neurologically intact continued headaches for the last 3 days, on neurontin, Neurology consult - recommended increasing gabapentin, dc fioricet, continue narcotics CTA from 07/28 with no evidence of vascular malformation as source of hemorrhage PT/OT/ST on nimodipine on keppra continue to follow for now. Work towards dc once headaches better managed discussed with Dr Johnston Subjective: Pt resting in bed, states that no medications have brought her pain down to even 50% of her pain level. Objective: AAOx3 NAD VSS MAEx4 CN II-XII grossly intact Motor 5/5 BUE/BLE +LT Urinary Catheter in Place: No - Physician Discussed Patient with : Vickie Neurosurgery Physical Exam - Vitals, I&O, Labs I and O 07/29/18 07/30/18 07/31/18 05:59 05:59 05:59 Intake Total 1350 0 Balance 1350 0 Intake: Oral (ml) 1350 0 Other: Intake Quantity Yes Yes Sufficient Number of Voids Toilet 1 2 1 Vital Signs Temp Pulse Resp BP Pulse Ox 37.1 C 50 L 12 109/69 97 07/30/18 04:00 07/30/18 07:30 07/30/18 07:30 07/30/18 07:30 07/30/18 07:30 Laboratory Results 07/27/18 14:30 07/27/18 14:30 ICD10 Worksheet Patient Problems: Problems Problem Status Onset Subarachnoid hemorrhage Acute Dyspnea Acute
[2018-07-30] MEDS ORDERED: POLYETHYLENE GLYCOL 3350 17 GM PKT PO PRN (10:18)
[2018-07-30] MEDS ORDERED: LACTULOSE 20 GM/30 ML UDCUP PO PRN (10:18)
[2018-07-30] MEDS ORDERED: MAGNESIUM HYDROXIDE 30 ML UDCUP PO PRN (10:18)
[2018-07-30] MEDS ORDERED: BISACODYL 10 MG SUPP PR PRN (10:18)
[2018-07-30] MEDS: POLYETHYLENE GLYCOL 3350 17 GM PKT PO PRN (10:47)
[2018-07-30] MEDS: SENNOSIDES/DOCUSATE SODIUM TAB PO SCH (21:17)
[2018-07-30] MEDS: PROGESTERONE,MICR 100 MG CAP PO SCH (21:17)
[2018-07-30] MEDS: ATORVASTATIN CALCIUM 10 MG TAB PO SCH (21:17)
[2018-07-30] MEDS: DOXYCYCLINE MONOHYDRATE 40 MG PO SCH (21:18)
[2018-07-31] MEDS: METHOCARBAMOL 750 MG TAB PO PRN ×2 (01:35→09:01)
[2018-07-31] MEDS: niMODipine 30 MG CAP PO SCH ×3 (01:35→09:04)
[2018-07-31] MEDS: DIAZEPAM 5 MG TAB PO PRN ×2 (03:38→22:50)
[2018-07-31] MEDS: HYDROCODONE/APAP 5/325 TAB PO PRN ×4 (03:38→20:23)
[2018-07-31] MEDS: LEVOTHYROXINE 88 MCG TAB PO SCH (06:46)
--- NOTE | 2018-07-31 08:24 | NEUSURGPN ---
Assessment/Plan: Assessment: 58 yo F admitted with spontaneous SAH Plan: neuro: stable, remains neurologically intact continued headaches for the last 3 days, on neurontin, Neurology consult - recommended increasing gabapentin, dc fioricet, continue narcotics. Will trial tramadol CTA from 07/28 with no evidence of vascular malformation as source of hemorrhage PT/OT/ST on nimodipine on keppra continue to follow for now. Work towards dc once headaches better managed discussed with Dr Johnston Subjective: Pt resting in bed, states she has continued severe headaches Objective: AAOx3 NAD VSS MAEx4 No deficits +LT Urinary Catheter in Place: No - Physician Discussed Patient with : Vickie Neurosurgery Physical Exam - Vitals, I&O, Labs I and O 07/30/18 07/31/18 08/01/18 05:59 05:59 05:59 Intake Total 2049 2700 Balance 20490 Intake: Oral (ml) 2049 2699 Other: Intake Quantity Yes Yes Sufficient Number of Voids Toilet 2 1 Vital Signs Temp Pulse Resp BP Pulse Ox 38.4 C H 49 L 12 106/69 97 07/30/18 20:00 07/31/18 03:54 07/31/18 03:54 07/31/18 03:54 07/31/18 03:54 Laboratory Results 07/31/18 04:45 07/31/18 04:45 ICD10 Worksheet Patient Problems: Problems Problem Status Onset Subarachnoid hemorrhage Acute Dyspnea Acute
[2018-07-31] MEDS: traMADol 50 MG TAB PO PRN ×2 (09:00→22:49)
[2018-07-31] MEDS: GABAPENTIN 300 MG CAP PO SCH ×3 (09:01→20:22)
[2018-07-31] MEDS: levETIRAcetam 500 MG TAB PO SCH (09:02)
[2018-07-31] MEDS: SENNOSIDES/DOCUSATE SODIUM TAB PO SCH ×2 (09:03→22:44)
--- NOTE | 2018-07-31 09:46 | ASMTCMCOM ---
CM Note CM Note Notes: Patient continues to have severe pain despite efforts to manage it. Neuro states headaches must be better managed prior to d/c. Patient has refused work with [employer] [facility] due to severity of headaches. They plan to do a follow up call post discharge. CM will follow. Date Signed: 07/31/2018 09:45 AM Electronically Signed By:Eve Juarez LCSW
[2018-07-31] MEDS: IBUPROFEN 600 MG TAB PO PRN (11:53)
[2018-07-31] MEDS: POLYETHYLENE GLYCOL 3350 17 GM PKT PO PRN (16:14)
[2018-07-31] MEDS: ATORVASTATIN CALCIUM 10 MG TAB PO SCH (20:24)
[2018-07-31] MEDS: PROGESTERONE,MICR 100 MG CAP PO SCH (20:25)
[2018-07-31] MEDS: DOXYCYCLINE MONOHYDRATE 40 MG PO SCH (22:42)
[2018-08-01] MEDS: HYDROCODONE/APAP 5/325 TAB PO PRN ×4 (04:15→18:18)
[2018-08-01] MEDS: LEVOTHYROXINE 88 MCG TAB PO SCH (05:49)
[2018-08-01] MEDS: LEVOTHYROXINE 100 MCG TAB PO SCH (05:49)
[2018-08-01] MEDS: traMADol 50 MG TAB PO PRN ×3 (08:14→23:18)
[2018-08-01] MEDS: SENNOSIDES/DOCUSATE SODIUM TAB PO SCH ×2 (08:15→21:56)
[2018-08-01] MEDS: GABAPENTIN 300 MG CAP PO SCH ×3 (08:15→21:26)
[2018-08-01] MEDS: valACYclovir 500 MG TAB PO SCH ×2 (08:56→21:26)
--- NOTE | 2018-08-01 11:30 | NEUSURGPN ---
Assessment/Plan: Assessment: 58 yo F admitted with spontaneous SAH Plan: neuro: stable, remains neurologically intact continued headaches - improving a little bit every day. Better today on ibuprofen and tramadol. Also on yamileth and norco. Has cold sores on lips- started on valcyclovir for 1 day to help with this CTA from 07/28 with no evidence of vascular malformation as source of hemorrhage PT/OT/ST DC'd keppra and nimotop continue to follow for now. Work towards dc once headaches better managed, maybe tomorrow discussed with Dr Johnston Subjective: Pt resting in bed, headaches a little better this morning. Main complaint this morning is lip pain from cold sore. Objective: AAOx3 Bottom lip evidence of fever blisters NAD VSS MAEx4 No deficits +LT - Physician Discussed Patient with : Vickie Neurosurgery Physical Exam - Vitals, I&O, Labs I and O 07/31/18 08/01/18 08/02/18 05:59 05:59 05:59 Intake Total 2700 400 Balance 2700 400 Weight 54.006 kg Intake: Oral (ml) 2700 400 Other: Intake Quantity Yes Yes Sufficient Number of Voids Toilet 1 1 1 Number of Stools Toilet 1 1 Vital Signs Temp Pulse Resp BP Pulse Ox 37.0 C 53 L 16 111/68 97 08/01/18 07:58 08/01/18 07:58 08/01/18 07:58 08/01/18 07:58 08/01/18 07:58 Laboratory Results 07/31/18 04:45 07/31/18 04:45 ICD10 Worksheet Patient Problems: Problems Problem Status Onset Subarachnoid hemorrhage Acute Dyspnea Acute
[2018-08-01] MEDS: IBUPROFEN 600 MG TAB PO PRN (19:42)
[2018-08-01] MEDS: DOXYCYCLINE MONOHYDRATE 40 MG PO SCH (21:24)
[2018-08-01] MEDS: PROGESTERONE,MICR 100 MG CAP PO SCH (21:26)
[2018-08-01] MEDS: ATORVASTATIN CALCIUM 10 MG TAB PO SCH (21:26)
[2018-08-02] MEDS: IBUPROFEN 600 MG TAB PO PRN ×2 (01:16→10:18)
[2018-08-02] MEDS: HYDROCODONE/APAP 5/325 TAB PO PRN ×4 (01:19→18:58)
[2018-08-02] MEDS: traMADol 50 MG TAB PO PRN (05:32)
[2018-08-02] MEDS: LEVOTHYROXINE 100 MCG TAB PO SCH (05:34)
[2018-08-02] MEDS: GABAPENTIN 300 MG CAP PO SCH ×2 (10:20→17:05)
[2018-08-02] MEDS: SENNOSIDES/DOCUSATE SODIUM TAB PO SCH (10:21)
[2018-08-02] MEDS: METHOCARBAMOL 750 MG TAB PO PRN ×2 (10:33→17:04)
--- NOTE | 2018-08-02 11:52 | NEUSURGPN ---
Assessment/Plan: Assessment: 58 yo F admitted with spontaneous SAH Plan: neuro: stable, remains neurologically intact continued headaches - improving a little bit every day. Better today on ibuprofen and tramadol. Also on yamileth and norco. Has cold sores on lips- started on valcyclovir for 1 day to help with this - treatment complete for this. encourage keeping lips moist with aquaphor CTA from 07/28 with no evidence of vascular malformation as source of hemorrhage PT/OT/ST DC'd keppra and nimotop DC home today with home medications. Discussed plan with as well and signs and symptoms to watch out for and when to return to the ER. Education given on home medication regimen discussed with Dr Johnston Subjective: Pt resting in bed, headaches a little better this morning again but still always constant. Feels that going home is a good options at this point. Objective: AAOx3 Bottom lip evidence of fever blisters NAD VSS MAEx4 No deficits +LT - Physician Discussed Patient with Dr.: Johnston Neurosurgery Physical Exam - Vitals, I&O, Labs I and O 08/01/18 08/02/18 08/03/18 05:59 05:59 05:59 Intake Total 400 1050 Balance 400 1050 Weight 54.006 kg Intake: Oral (ml) 400 1050 Other: Intake Quantity Yes Sufficient Number of Voids Toilet 1 1 1 Number of Stools Toilet 1 1 1 Vital Signs Temp Pulse Resp BP Pulse Ox 36.8 C 42 L 16 102/56 L 96 08/02/18 03:58 08/02/18 03:58 08/02/18 03:58 08/02/18 03:58 08/02/18 03:58 Laboratory Results 07/31/18 04:45 07/31/18 04:45 ICD10 Worksheet Patient Problems: Problems Problem Status Onset Subarachnoid hemorrhage Acute Dyspnea Acute
--- NOTE | 2018-08-02 14:06 | ASDISCHSUM ---
Discharge Information Plan Status:Home with No Needs Medically Cleared to Leave:08/02/2018 Discharge Date:08/02/2018 CM D/C Disposition:Home, Routine, Self-Care ADT D/C Disposition:Home, Routine, Self-Care Projected Discharge Date:08/02/2018 03:00 PM Transportation at D/C:Family Discharge Delay Reason: Follow-Up Date:08/02/2018 03:00 PM Discharge Slot: Final Diagnosis:SAH Placement Information Patient Contact Information Contact Name:JUAN FRANCISCO Relationship: Address:[address] [place] [address] City:[place] Alternate Phone: [facility]/Zip Code:[place] [address] Email: Financial Information Financial Class:J[facility] Primary Plan Desc:JAZIEL Rebecca [facility] Primary Plan Number:[id number] Secondary Plan Desc: Secondary Plan Number: Assessment Information [facility] CM Progress Note CM Note CM Note Notes: Patient improving after experiencing spontaneous SAH 07/22. She is still c/o headache, but is AO x 3. She is supported by her and children. She is ambulating and able to take care of ADLs. She will discharge independently. Case Management available if needs change. Date Signed: 07/25/2018 11:15 AM Electronically Signed By:Elisabeth Graves RN [facility] CM Progress Note CM Note CM Note Notes: Patient continues to have a severe headache. Went for a CTA today. RN reports that family has many stressors. This CM went to talk to pt and but they had just returned from CTA and not interested in talking at that time. Date Signed: 07/28/2018 12:07 PM Electronically Signed By:Tressa Acevedo LCSW [facility] Progress Note CM Note CM Note Notes: Patient continues to have severe pain despite efforts to manage it. Neuro states headaches must be better managed prior to d/c. Patient has refused work with [employer] due to severity of headaches. They plan to do a follow up call post discharge. CM will follow. Date Signed: 07/31/2018 09:45 AM Electronically Signed By:Eve Juarez LCSW Case Management Discharge Plan Note Case Management Discharge Discharge Order Complete? Answers: Yes Patient to Obtain Answers: via Family Medications Transportation Arranged Answers: Family/Friends Transport will Pick (Date 08/02/2018 03:00 PM & Time) Family Notified Answers: Yes Notes: Family to transport Discharge Comments Notes: Patient has been dischraged home with . Headache better. Date Signed: 08/02/2018 02:05 PM Electronically Signed By:Tressa Acevedo LCSW Intervention Information
[2018-08-02 16:32] VITALS: BP 123/89
== END 2018-08-02 19:04 | disposition home or self-care (01) | DRG 66 ==
LOC: EDUNIT# → F2N 16:04 → F3N 07-31 15:54
PROVIDERS: ADMIT Neurological Surgery; ATTEND Neurological Surgery
DX: I60.9 Nontraumatic subarachnoid hemorrhage, unspecified (principal); E78.5 Hyperlipidemia, unspecified; E03.9 Hypothyroidism, unspecified; Z84.89 Family history of other specified conditions
CPT/HCPCS: 82435-PO; 82565-PO; 82947-PO; 84132-PO; 84295-PO; 84520-PO; 85014-PO; 92507-GN; 92523-GN; 96365; 96366; A9585; C1760; C1769; C1894; J1100; J1644; J1885; J2250; J2270; J2310; J2405; J2765; J2800; J3010; J3360; J3480; Q9967

== ENCOUNTER → 2018-08-31 | Outpatient (CLI) | payer OTHER | LOC: FIMAGING 12:22 | PROVIDERS: ATTEND Internal Medicine | DX: M54.2 Cervicalgia (principal); G91.9 Hydrocephalus, unspecified; Z86.79 Personal history of other diseases of the circulatory system ==

== ENCOUNTER → 2018-09-04 | Outpatient (CLI) | payer OTHER ==
[~2018-09-04] MED LIST: IOPAMIDOL (ISOVUE 370) 100 ML BTL IV ONE
== END ==
LOC: FIMAGING 09:33
PROVIDERS: ATTEND Neurological Surgery
DX: S06.6X0A Traumatic subarachnoid hemorrhage without loss of consciousness, initial encounter (principal)
CPT/HCPCS: Q9967

== ENCOUNTER → 2018-12-07 | Outpatient (CLI) | payer OTHER | LOC: BMCIMAGING 10:57 | PROVIDERS: ATTEND Internal Medicine | DX: Z13.820 Encounter for screening for osteoporosis (principal); M85.89 Other specified disorders of bone density and structure, multiple sites; Z78.0 Asymptomatic menopausal state ==